=== PATIENT | male | born 1990 | race Caucasian/White ===

== ENCOUNTER 2016-06-13 17:35 | Emergency (ER) | payer SELFPAY ==
--- NOTE | 2016-06-13 18:08 | ED Physician Documentation ---
Sore Throat/Dental Pain - HISTORIAN Historian: patient - HPI Stated Complaint: sore throat/fever Chief Complaint: Sore Throat Onset: days ago (2) Associated Symptoms: chills, sore throat, mild, congestion. denies: fever Further Comments: yes (25 yo male presents with 2 day history of sore throat. Low grade fever. No abdominal pain. Mild body aches. No rash. No cough. No nausea/vomiting/diarrhea) - ROS CONST: no problems - PAST HX Past History: none Allergies/Adverse Reactions: Allergies Allergy/AdvReac Type Severity Reaction Status Date / Time No Known Allergies Allergy Verified 06/13/16 17:50 Home Medications: Ambulatory Orders Medication Instructions Recorded Amoxicillin [Amoxil] 500 mg PO TID #30 capsule 06/13/16 - SOCIAL HX Smoking History: non-smoker Alcohol Use: none - FAMILY HX Family History: No - VITAL SIGNS Vital Signs: Vital Signs Temp Pulse Resp BP Pulse Ox 100.8 F H 110 H 16 136/82 100 06/13/16 17:45 06/13/16 17:45 06/13/16 17:45 06/13/16 17:45 06/13/16 17:45 - REVIEWED ASSESSMENTS Nursing Assessment Reviewed: Yes Vitals Reviewed: Yes Progress - Progress Progress: Pt offered Bicillin LA IM but declined. Pt noticed to have slightly tachycardia, discussed with patient. He reports he gets extremely nervous when he goes to doctors office. After observation period , HR decreased to 90's. ED Results Lab/Radiology - Lab Results Lab Results: Lab Results 06/13/16 06/13/16 18:10 17:50 Influenza Type A Ag Negative (NEGATIVE) Influenza Type B Ag Negative (NEGATIVE) Group A Strep Screen Positive H (NEGATIVE) - Orders Orders: ED Orders Category Date Time Status INFLUENZA A&B Stat Lab 06/13/16 17:50 Completed Strep [GRP A STREP SCREEN] Stat Lab 06/13/16 18:10 Completed Sore throat Physical Exam - EXAM General Appearance: no acute distress, alert Head/Neck: head nml inspection, trachea midline, cervical lymphadenopathy Mouth/Throat: lips nml, pharyngeal erythema, tonsillar swelling Ear/Nose: nml inspection Respiratory: no resp. distress CVS: reg. rate & rhythm Abdomen: soft, no organomegaly Extremities: non-tender Neuro/Psych: oriented x3 Discharge Clincal Impression: Strep pharyngitis Additional Instructions: Take Amoxicillin 500mg three times daily for 10 days Tylenol as needed for fever/chills/body aches Drink plenty of water to maintain hydration Home Medications: Ambulatory Orders Amoxicillin [Amoxil] 500 mg PO TID #30 capsule 06/13/16 Condition: Good Disposition: HOME, SELF-CARE Decision to Admit: NO Decision Time: 18:17
[2016-06-13 18:25] VITALS: BP 128/70
== END 2016-06-13 18:20 | disposition home or self-care (01) ==
LOC: ED 17:35
DX: J02.0 Streptococcal pharyngitis (principal)
CPT/HCPCS: 87400; 87880; 99282

== ENCOUNTER 2017-05-05 12:43 | Emergency (ER) | payer SELFPAY ==
--- NOTE | 2017-05-05 13:08 | ED Physician Documentation ---
Sore Throat/Dental Pain - HPI Stated Complaint: Sore throst Chief Complaint: Sore Throat Onset: days ago Associated Symptoms: chills, sore throat, severe, unable to swallow, R ear pain Further Comments: yes (26 year old male patient presents with with complaint of severe sore throat. Started po PCN last night due to pain. C/O difficulty swallowing, right ear pain and chills.) - ROS CONST: no problems CVS/RESP: none GI/: denies: nausea, vomiting MS/SKIN/LYMPH: denies: muscle aches, rash NEURO/PSYCH: none - PAST HX Past History: none Other History: none Allergies/Adverse Reactions: Allergies Allergy/AdvReac Type Severity Reaction Status Date / Time No Known Allergies Allergy Verified 05/05/17 12:56 Home Medications: Ambulatory Orders Medication Instructions Recorded Amoxicillin [Trimox] 500 mg PO TID #30 capsule 05/05/17 - SOCIAL HX Smoking History: cigarettes - FAMILY HX Family History: No - VITAL SIGNS Vital Signs: Vital Signs Temp Pulse Resp BP Pulse Ox 98.5 F 86 16 132/76 98 05/05/17 13:15 05/05/17 13:15 05/05/17 13:15 05/05/17 13:15 05/05/17 13:15 - REVIEWED ASSESSMENTS Nursing Assessment Reviewed: Yes Vitals Reviewed: Yes ED Results Lab/Radiology - Radiology Radiology Impressions: Chloraseptic spray or lozenges as needed for throat pain. Warm salt water gargles as needed pain Increase your fluid intake juices, hot tea, non-caffeinated beverages If you are congested - You may want to try Vicks rub on your chest and/or feet Use a humidifier in the room where you sleep. You can also sit in a steam filled bathroom 1-2 times a day. Tylenol or Ibuprofen as needed for fever, pain and body aches. 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 - Orders Orders: ED Orders Category Date Time Status Rapid Strep [GRP A STREP SCREEN] Stat Lab 05/05/17 12:50 Ordered Sore throat Physical Exam - EXAM General Appearance: mild distress Head/Neck: head nml inspection, trachea midline, no lymphadenopathy, thyroid nml , neck nml inspection Mouth/Throat: lips nml, gums nml, voice nml, no drooling, no air way problems, no thrush, membranes nml, pharyngeal erythema, tonsillar exudate Respiratory: no resp. distress, breath sounds nml CVS: reg. rate & rhythm, heart sounds nml Abdomen: soft, no organomegaly, normal bowel sounds, no abdominal bruit, no distension Skin: normal color, warm/dry, NR, INT, PAL, DR Neuro/Psych: oriented x3, mood/affect nml Discharge Clincal Impression: Acute bacterial pharyngitis Prescriptions: Amoxicillin [Trimox] 500 mg PO TID #30 capsule Referrals: Primary Doctor,No [REFERRING] - 2 Days Additional Instructions: Chloraseptic spray or lozenges as needed for throat pain. Warm salt water gargles as needed pain Increase your fluid intake juices, hot tea, non-caffeinated beverages If you are congested - You may want to try Vicks rub on your chest and/or feet Use a humidifier in the room where you sleep. You can also sit in a steam filled bathroom 1-2 times a day. Tylenol or Ibuprofen as needed for fever, pain and body aches. 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 Condition: Stable Disposition: 01 HOME, SELF-CARE Decision to Admit: NO Decision Time: 13:07
[2017-05-05 13:16] VITALS: BP 132/76
== END 2017-05-05 13:15 | disposition home or self-care (01) ==
LOC: ED 12:43
DX: J02.8 Acute pharyngitis due to other specified organisms (principal); B97.89 Other viral agents as the cause of diseases classified elsewhere
CPT/HCPCS: 87070; 87880; 99283

== ENCOUNTER 2018-01-28 18:25 | Emergency (ER) | payer SELFPAY ==
[2018-01-28 18:35] VITALS: BP 145/84
[2018-01-28] MEDS: KETOROLAC TROMETHAMINE 60 MG/2 ML VIAL IM ONE (18:54)
--- NOTE | 2018-01-28 19:29 | Diagnostic Imaging Report ---
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 [address] [address] Report Submission Date: Jan 28, 2018 7:22:04 PM CDT Patient Study Name: ROSS PAUL Date: Jan 28, 2018 6:54:07 PM CDT Modality Type: DX Gender: M Description: CHEST : 89 Institution: [facility] Physician: ARACELI CONWAY (ROLL ON WORKER) - ER Chest, PA and lateral. HISTORY Chest pain. FINDINGS The heart, lungs, pleura, mediastinum and bony thorax are normal. IMPRESSION Normal. Electronically signed on Jan 28, 2018 7:22:04 PM CDT by: Donny POWELL
--- NOTE | 2018-01-28 19:34 | ED Physician Documentation ---
General Adult - HPI Stated Complaint: L shoulder pain Chief Complaint: General Adult Further Comments: yes (27 year old male patient presents with complaint of left chest wall swelling and discomfort. States he was at the driving range and batting cage a few days ago. Reports swelling started today. 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>) - ROS CONST: no problems EYES/ENT: none CVS/RESP: none GI/: none MS/SKIN/LYMPH: none NEURO/PSYCH: denies: headache - PAST HX Past History: none Allergies/Adverse Reactions: Allergies Allergy/AdvReac Type Severity Reaction Status Date / Time No Known Allergies Allergy Verified 01/28/18 18:35 Home Medications: Ambulatory Orders Medication Instructions Recorded NK 01/28/18 - SOCIAL HX Smoking History: cigarettes - FAMILY HX Family History: No - VITAL SIGNS Vital Signs: Vital Signs Temp Pulse Resp BP Pulse Ox 98.2 F 107 H 15 145/84 98 01/28/18 18:32 01/28/18 18:32 01/28/18 18:32 01/28/18 18:32 01/28/18 18:32 - REVIEWED ASSESSMENTS Nursing Assessment Reviewed: Yes Vitals Reviewed: Yes ED Results Lab/Radiology - Radiology Radiology Impressions: Chest, PA and lateral. HISTORY Chest pain. FINDINGS The heart, lungs, pleura, mediastinum and bony thorax are normal. IMPRESSION Normal. Electronically signed on Jan 28, 2018 7:22:04 PM CDT by: Donny Vazquez - Orders Orders: ED Orders Category Date Time Status CHEST 2VIEW [RAD] Stat Exams 01/28/18 Completed Ketorolac Tromethamine [Toradol] Med 01/28/18 18:41 Discontinued 60 mg IM NOW ONE General Adult Physical Exam - PHYSICAL EXAM GENERAL APPEARANCE: mild distress EENT: eye inspection normal, RAMU RESPIRATORY: no resp distress, breath sounds normal, other (edema noted over left pectoralis muscle; no tenderness to palpation) CVS: reg rate & rhythm, heart sounds normal, equal pulses, no murmur, no gallop, PMI nml, no JVD, no friction rub, 24 ABDOMEN: soft, no organomegaly, normal bowel sounds, no abdominal bruit, no distension BACK: normal inspection, no CVA tenderness SKIN: normal color, warm/dry, NR, INT, PAL, DR EXTREMITIES: non-tender, normal range of motion, no evidence of injury, no edema, J, 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 Do not take ibuprofen, aleve, naproxen or any other NSAID while you are on toradol. Condition: Stable Disposition: 01 HOME, SELF-CARE Decision to Admit: NO Decision Time: 19:34
== END 2018-01-28 19:39 | disposition home or self-care (01) ==
LOC: ED 18:25
DX: S29.011A Strain of muscle and tendon of front wall of thorax, initial encounter (principal); X58.XXXA Exposure to other specified factors, initial encounter; Y92.39 Other specified sports and athletic area as the place of occurrence of the external cause; Y93.53 Activity, golf; Y93.64 Activity, baseball; Y99.9 Unspecified external cause status
CPT/HCPCS: 71046; J1885; 96372; 99284

== ENCOUNTER 2018-06-03 02:13 | Emergency (ER) | payer SELFPAY ==
[2018-06-03] MEDS ORDERED: KETOROLAC TROMETHAMINE 60 MG/2 ML VIAL IM ONE (02:25)
[2018-06-03] MEDS ORDERED: KETOROLAC TROMETHAMINE 60 MG/2 ML VIAL ONE (02:28)
[2018-06-03] MEDS ORDERED: ACETAMINOPHEN WITH CODEINE 300MG/30MG TABLET PO ONE (02:41)
--- NOTE | 2018-06-03 02:44 | ED Physician Documentation ---
Sore Throat/Dental Pain - HISTORIAN Historian: patient - HPI Stated Complaint: tooth pain Chief Complaint: Dental Pain Onset: days ago Context: Fractured Tooth, Dental Caries Further Comments: yes (27 year old male patient present with complaint of dental pain from back right molar. Decay to gumline. Cannot see the dentist until next week.) - ROS CONST: no problems CVS/RESP: none GI/: denies: nausea, vomiting MS/SKIN/LYMPH: denies: muscle aches - PAST HX Past History: gum disease Other History: none Allergies/Adverse Reactions: Allergies Allergy/AdvReac Type Severity Reaction Status Date / Time No Known Allergies Allergy Verified 06/03/18 02:37 Home Medications: Ambulatory Orders Medication Instructions Recorded NK 01/28/18 - SOCIAL HX Smoking History: cigarettes - FAMILY HX Family History: No - VITAL SIGNS Vital Signs: Vital Signs Temp Pulse Resp BP Pulse Ox 98.0 F 74 18 158/85 99 06/03/18 02:22 06/03/18 02:22 06/03/18 02:22 06/03/18 02:22 06/03/18 02:22 - REVIEWED ASSESSMENTS Nursing Assessment Reviewed: Yes Vitals Reviewed: Yes ED Results Lab/Radiology - Orders Orders: ED Orders Category Date Time Status Acetaminophen with Codeine [Tylenol #3] Med 06/03/18 02:41 Once 2 each PO NOW ONE Ketorolac Tromethamine [Toradol] Med 06/03/18 02:28 Discontinued 60 mg .ROUTE .STK-MED ONE Dental Pain Physical Exam - EXAM General Appearance: no acute distress, alert Head/Neck: head nml inspection, neck nml inspection Eyes: eyes nml inspection, PERRL Mouth/Throat: lips nml, gums nml, pharynx nml, voice nml, no drooling, no air way problems, no thrush, membranes nml, widespread dental decay, other (#1 - decay to gumline; no edema or erythema) Ear/Nose: nml inspection Respiratory: no resp. distress CVS: reg. rate & rhythm Skin: normal color, warm/dry, NR, INT, PAL, DR Neuro/Psych: No: none Discharge Clincal Impression: Pain, dental, Dental caries Referrals: Primary Doctor,No [Primary Care Provider] - 2 Days Additional Instructions: See your dentist inga Condition: Stable Disposition: 01 HOME, SELF-CARE Decision to Admit: NO Decision Time: 02:46
[2018-06-03 02:55] VITALS: BP 122/68
== END 2018-06-03 02:52 | disposition home or self-care (01) ==
LOC: ED 02:13
DX: K02.9 Dental caries, unspecified (principal); K08.89 Other specified disorders of teeth and supporting structures; Z72.0 Tobacco use
CPT/HCPCS: 96372; 99282; 99283; J1885

== ENCOUNTER 2018-07-21 09:12 | Emergency (ER) | payer SELFPAY ==
[2018-07-21 09:25] VITALS: BP 161/92
--- NOTE | 2018-07-21 09:27 | ED Physician Documentation ---
Sore Throat/Dental Pain - HISTORIAN Historian: patient - HPI Stated Complaint: dental pain Chief Complaint: Dental Pain Additional Information: Patient presents to ED with a 2 day history of left lower dental pain. Onset: days ago (2) Context: Fractured Tooth, Dental Caries Associated Symptoms: denies: fever, chills Worsened By: cold Further Comments: no - ROS CONST: no problems CVS/RESP: none GI/: denies: nausea, vomiting MS/SKIN/LYMPH: denies: rash NEURO/PSYCH: headache - PAST HX Past History: gum disease Other History: none Allergies/Adverse Reactions: Allergies Allergy/AdvReac Type Severity Reaction Status Date / Time No Known Allergies Allergy Verified 06/03/18 02:37 Home Medications: Ambulatory Orders Medication Instructions Recorded Penicillin V Potassium [Pen V K] 500 mg PO TID #30 tablet 07/21/18 - SOCIAL HX Smoking History: cigarettes, greater than 1 pack/day Alcohol Use: none Drug Use: none - FAMILY HX Family History: No - VITAL SIGNS Vital Signs: Vital Signs Temp Pulse Resp BP Pulse Ox 122/68 06/03/18 02:52 - REVIEWED ASSESSMENTS Nursing Assessment Reviewed: Yes Vitals Reviewed: Yes Dental Pain Physical Exam - EXAM General Appearance: alert Head/Neck: head nml inspection Eyes: PERRL Mouth/Throat: dental tenderness, other (poor dentition, multiple fractured teeth) Ear/Nose: nml inspection Respiratory: no resp. distress, breath sounds nml CVS: reg. rate & rhythm, heart sounds nml Abdomen: soft Extremities: non-tender Skin: warm/dry, normal color Neuro/Psych: none Discharge Clincal Impression: Pain, dental Prescriptions: Penicillin V Potassium [Pen V K] 500 mg PO TID #30 tablet Referrals: Primary Doctor,No [Primary Care Provider] - 2 Days Additional Instructions: 1. Take antibiotics as directed 2. Use tramadol for pain. You may add Ibuprofen or Tylenol for better pain control 3. Rinse mouth with 1tsp salt/1 tsp baking soda in warm water after each meal 4. Follow up with a dentist as soon as possible 5. Return to ER for new or worsening symptoms Condition: Stable Disposition: 01 HOME, SELF-CARE Decision to Admit: NO Date of Decison to Admit: 07/21/18 Decision Time: 09:42
== END 2018-07-21 09:49 | disposition home or self-care (01) ==
LOC: ED 09:12
DX: K08.89 Other specified disorders of teeth and supporting structures (principal); Z72.0 Tobacco use
CPT/HCPCS: 99281; 99282

== ENCOUNTER 2018-07-29 22:46 | Emergency (ER) | payer SELFPAY ==
--- NOTE | 2018-07-29 23:13 | ED Physician Documentation ---
General Adult - HISTORIAN Historian: patient - HPI Stated Complaint: Intermittent "zoning out"/diaphoresis Chief Complaint: General Adult Further Comments: yes (27 year old male patient presents with his girlfriend reporting 2 episodes of "zoning out", "staring into space" accompanied by diaphoretic hands. Patient is currently on ultram and PCN for dental abscess.) - ROS CONST: no problems EYES/ENT: none CVS/RESP: none GI/: none MS/SKIN/LYMPH: none NEURO/PSYCH: denies: headache - PAST HX Past History: none Allergies/Adverse Reactions: Allergies Allergy/AdvReac Type Severity Reaction Status Date / Time No Known Allergies Allergy Verified 07/29/18 23:12 Home Medications: Ambulatory Orders Medication Instructions Recorded Penicillin V Potassium [Pen V K] 500 mg PO TID #30 tablet 07/21/18 Tramadol HCl [Ultram] 50 mg PO PRN PRN 07/29/18 - SOCIAL HX Smoking History: cigarettes - FAMILY HX Family History: No - VITAL SIGNS Vital Signs: Vital Signs Temp Pulse Resp BP Pulse Ox 99.8 F H 98 H 18 166/82 99 07/29/18 22:47 07/29/18 22:47 07/29/18 22:47 07/29/18 22:47 07/29/18 22:47 - REVIEWED ASSESSMENTS Nursing Assessment Reviewed: Yes Vitals Reviewed: Yes Progress - Progress Progress: Patient has been seen in the past for similar complaints. Does not have a PCP, has never had a neuro work up. No history of seizure diagnosis. Likely side effect of ultram Recommended patient establish PCP and make follow up wellness appointment. General Adult Physical Exam - PHYSICAL EXAM GENERAL APPEARANCE: [id number] EENT: eye inspection normal, RMAU RESPIRATORY: no resp distress, chest non-tender, breath sounds normal CVS: reg rate & rhythm, heart sounds normal, equal pulses, no murmur, no gallop, PMI nml, no JVD, no friction rub, 24 SKIN: normal color, warm/dry, NR, INT, PAL, DR NEURO: oriented X3, CN's nml as tested, motor nml, sensation nml, mood/affect nml Discharge Clincal Impression: Side effect of drug Referrals: Primary Doctor,No [Primary Care Provider] - 2 Days Additional Instructions: Stop Ultram/tramadol Use ibuprofen 800mg three times a day x 5 days as needed for dental pain. Condition: Stable Disposition: 01 HOME, SELF-CARE Decision to Admit: NO Decision Time: 23:13
[2018-07-29 23:47] VITALS: BP 147/83
== END 2018-07-29 23:30 | disposition home or self-care (01) ==
LOC: ED 22:46
DX: R41.82 Altered mental status, unspecified (principal); T40.4X5A Adverse effect of other synthetic narcotics, initial encounter; Y92.9 Unspecified place or not applicable
CPT/HCPCS: 99281; 99282

== ENCOUNTER 2018-11-21 11:31 | Emergency (ER) | payer SELFPAY ==
--- NOTE | 2018-11-21 11:44 | ED Physician Documentation ---
Sore Throat/Dental Pain - HISTORIAN Historian: patient, parent (Mom) - [facility] Chief Complaint: Dental Pain Additional Information: Patient is a 28-year-old male who presents to the ER with mom. Patient c/o left upper dental abscess that started a couple of days ago. Patient has an extensive history of ER visits for dental pain. He states that he saw a dentist a couple of weeks ago but was inappropriate when trying to answer which tooth he had worked on. Denies pain- states that he took an Ibuprofen yesterday. Explained to patient the importance of following up with dentist due to numerous dental caries, broken teeth, and gingivitis- patient denies illegal drug use. Onset: days ago Context: Fractured Tooth, Abscess, Dental Caries, Possible Infection Associated Symptoms: denies: fever, chills, sore throat - ROS CONST: no problems CVS/RESP: none GI/: denies: nausea, vomiting MS/SKIN/LYMPH: denies: muscle aches NEURO/PSYCH: none - PAST HX Past History: none Other History: none Immunizations: UTD Allergies/Adverse Reactions: Allergies Allergy/AdvReac Type Severity Reaction Status Date / Time No Known Allergies Allergy Verified 11/21/18 11:43 Home Medications: Ambulatory Orders Medication Instructions Recorded Penicillin V Potassium [Pen V K] 500 mg PO TID #30 tablet 11/21/18 - SOCIAL HX Smoking History: greater than 1 pack/day Alcohol Use: none Drug Use: none - FAMILY HX Family History: Yes - VITAL SIGNS Vital Signs: Vital Signs Temp Pulse Resp BP Pulse Ox 147/83 07/29/18 23:42 - REVIEWED ASSESSMENTS Nursing Assessment Reviewed: Yes Vitals Reviewed: Yes Dental Pain Physical Exam - EXAM General Appearance: no acute distress, alert Head/Neck: head nml inspection, trachea midline Eyes: eyes nml inspection, PERRL Mouth/Throat: lips nml, dental tenderness, gum swelling around teeth, widespread dental decay Ear/Nose: nml inspection Respiratory: breath sounds nml CVS: heart sounds nml Abdomen: normal bowel sounds Extremities: non-tender Skin: warm/dry Neuro/Psych: none Discharge Clincal Impression: Dental caries, Dental abscess Prescriptions: Penicillin V Potassium [Pen V K] 500 mg PO TID #30 tablet Referrals: Primary Doctor,No [Primary Care Provider] - 2 Days Additional Instructions: Take Penicillin 500mg by mouth 3 times a day for 10 days May alternate Tylenol and Ibuprofen as needed for discomfort Use Anbesol or Orajel over the counter SEE DENTIST MARYURI Condition: Good Disposition: 01 HOME, SELF-CARE Decision to Admit: NO Decision Time: 12:06
[2018-11-21 11:46] VITALS: BP 138/72
== END 2018-11-21 11:51 | disposition home or self-care (01) ==
LOC: ED 11:31
DX: K04.7 Periapical abscess without sinus (principal); K02.9 Dental caries, unspecified
CPT/HCPCS: 99282